=== PATIENT | female | born 1970 | race Caucasian/White ===

== ENCOUNTER 2021-01-13 17:53 | Emergency (ER) | payer MEDICARE, MEDICAID ==
[~2021-01-13] VITALS: Ht 170 cm; Wt 104.0 kg
--- NOTE | 2021-01-13 18:18 | ED Integumentary General ---
General Chief Complaint: Skin/Wound Problems Stated Complaint: L FOOT RASH History of Present Illness Date Seen by Provider: Jan 13, 2021 Time Seen by Provider: 18:07 Initial Comments Left ankle rash. Physical Exam Vital Signs Capillary Refill : Departure Impression Primary Impression: Allergic contact dermatitis Disposition: 01 HOME, SELF-CARE Condition: Stable Departure-Patient Inst. Decision time for Depature: 18:16 Patient Instructions: Contact Dermatitis (DC) Add. Discharge Instructions: Plan: 1. Keep area clean. Apply thin layer of steroid cream twice a day for 7-10 days. 2. May use triple antibiotic cream daily to prevent secondary infection. 3. Avoid contact with brace. May take your home Zyrtec and Benadryl as needed per package for itching/redness. 4. Return for any new, concerning, or worsening symptoms. All discharge instructions reviewed with patient and/or family. Voiced understanding. ROYCE PATTERSON DATA QUALITY CONSULTANT Jan 13, 2021 18:18
[2021-01-13] MEDS ORDERED: TRIAMCINOLONE 0.1% CR (KENALOG) 15 GM TUBE ONE (18:27)
[2021-01-13 18:33] VITALS: BP 134/69
[2021-01-13] MEDS ORDERED: TRIAMCINOLONE 0.1% OINT (KENALOG) 15 GM TUBE TOP ONE (21:00)
[2021-01-14] MEDS ORDERED: CEPH500T PO (19:17)
[2021-01-14] MEDS ORDERED: DEXA4TAB PO (19:17)
== END 2021-01-13 18:33 | disposition home or self-care (01) ==
LOC: ER 17:57
DX: L23.9 Allergic contact dermatitis, unspecified cause (principal)
CPT/HCPCS: 99281

== ENCOUNTER 2021-01-14 18:34 | Emergency (ER) | payer MEDICARE, MEDICAID ==
[~2021-01-14] VITALS: Ht 164 cm; Wt 90.0 kg
[2021-01-14] MEDS ORDERED: CEPHALEXIN 250 MG (KEFLEX) CAP PO SCH (19:15)
[2021-01-14] MEDS ORDERED: DEXA4TAB PO (19:17)
[2021-01-14] MEDS ORDERED: CEPH500T PO (19:17)
--- NOTE | 2021-01-14 19:17 | ED Integumentary General ---
General Chief Complaint: Allergic Reaction Stated Complaint: GUTIÉRREZ ON ANKLE Source: patient Exam Limitations: no limitations History of Present Illness Date Seen by Provider: Jan 14, 2021 Time Seen by Provider: 19:13 Initial Comments To ER with left ankle wound. She was here yesterday for the same. This began after application of a neoprene ankle brace. This began with some redness and today is taken on a more purplish color. She was seen here last night and given some topical triple antibiotic ointment and triamcinolone 0.1% cream. She noticed the development of a few vesicles today circumferentially around the ankle with new development of some erythematous papules on the dorsal aspect of the foot at the location of the wrap. She denies any systemic symptoms. 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 She took her IVIG infusion today and a dexamethasone 4 mg tablet that she only takes once a month. She is also diabetic and is concerned about the development of infection though she does not believe any is present currently Timing/Duration: constant, getting worse Severity: moderate Possible Cause: no cause identified Associated Symptoms: denies symptoms Allergies and Home Medications Allergies Coded Allergies: metaproterenol (Verified Allergy, Unknown, 01/13/21) Uncoded Allergies: CITRIS (Allergy, Unknown, 01/13/21) Patient Home Medication List Home Medication List Reviewed: Yes Review of Systems Review of Systems Constitutional: see HPI EENTM: see HPI Respiratory: no symptoms reported Cardiovascular: no symptoms reported Genitourinary: no symptoms reported Musculoskeletal: no symptoms reported Skin: see HPI Psychiatric/Neurological: No Symptoms Reported Endocrine: No Symptoms Reported Past Krrvutd-Ftfile-Rxclod Hx Patient Social History Tobacco Use?: No Use of E-Cig and/or Vaping dev: No Substance use?: No Alcohol Use?: No Pt feels they are or have been: No Immunizations Up To Date First/Initial COVID19 Vaccinat: 08/24/20 Second COVID19 Vaccination Sukhjinder: 08/24/20 Third COVID19 Vaccination Date: 08/24/20 Physical Exam Vital Signs Capillary Refill : General Appearance: WD/WN, no apparent distress HEENT: PERRL/EOMI, normal ENT inspection Neck: non-tender, full range of motion Respiratory: no respiratory distress, no accessory muscle use Gastrointestinal: normal bowel sounds, non tender Extremities: normal range of motion, non-tender Neurologic/Psychiatric: alert, normal mood/affect, oriented x 3 Skin: normal color, warm/dry Skin Problem Location: lower extremities Skin Problem Character: other (Circumferential erythematous/petechial rash about the left ankle. To the medial aspect of the ankle there are a few vesicles 1 of which has ruptured and is leaking serous fluid. No cellulitis.) Departure Communication (Admissions) I will put her on some cephalexin for infection prophylaxis given her history of CVID and diabetes and 2 more days of dexamethasone at home. She will continue the topical triple antibiotic ointment and topical triamcinolone. Impression Primary Impression: Allergic contact dermatitis Disposition: HOME, SELF-CARE Condition: Stable Departure-Patient Inst. Decision time for Depature: 19:15 Referrals: NO,LOCAL PHYSICIAN (PCP/Family) Primary Care Physician Patient Instructions: Contact Dermatitis (DC) Add. Discharge Instructions: 1. Continue with the triple antibiotic ointment and the topical steroid. You can wrap this with gauze as needed. Elevate this. Take the oral antibiotic and oral steroid as directed. All discharge instructions reviewed with patient and/or family. Voiced understanding. Scripts Cephalexin (Cephalexin) 500 Mg Tablet 500 MG PO TID, #15 TAB 0 Refills Prov: RINKU CARLOS APRN 01/14/21 Dexamethasone (Dexamethasone) 4 Mg Tablet 4 MG PO DAILY, #2 TAB Prov: RINKU CARLOS APRN 01/14/21 RINKU CARLOS APRN Jan 14, 2021 19:17
[2021-01-14 19:45] VITALS: BP 137/74
== END 2021-01-14 19:45 | disposition home or self-care (01) ==
LOC: EDUNIT# 18:34 → ER 18:36
DX: L23.9 Allergic contact dermatitis, unspecified cause (principal); E11.9 Type 2 diabetes mellitus without complications
CPT/HCPCS: 99281

== ENCOUNTER 2021-11-26 08:54 | Emergency (ER) | payer MEDICARE, MEDICAID ==
[~2021-11-26 08:54] MED LIST: CEPH500T PO; DEXA4TAB PO
--- NOTE | 2021-11-26 09:11 | ED Cardiac General ---
History of Present Illness General Chief Complaint: Cardiac/General Problems Stated Complaint: CARDIAC Nursing Triage Note: PT BROUGHT IN BY [facility] FROM HOME WITH COMPLAINT OF CHEST PAIN, AND RACING HEART. STATES LAST NIGHT HER WATCH ALERTED HER THAT SHE WAS IN AFIB. STATES WHENEVER SHE DOES HER AUTOIMMUNE INFUSIONS, IT RAISES HER HEART RATE. TAKES FLECANIDE FOR RATE CONTROL. DESCRIBES CP A SQUEEZING. Source: patient Exam Limitations: no limitations History of Present Illness Date Seen by Provider: Nov 26, 2021 Time Seen by Provider: 09:00 Initial Comments 51-year-old female presents to the emergency department today for chest tightness. She has a history of paroxysmal atrial fibrillation and started to have palpitations, lightheadedness and some difficulty breathing starting at about midnight last night. She figured it was from her atrial fibrillation and she just changed medication, starting flecainide. At about 5 AM she started to have some chest tightness that she has had in the past however it has not gone away which is the reason for her presentation today. She denies any recent fevers or chills, cough, abdominal pain or changes in bowel or bladder habits. She does have history of immune deficiency, takes IVIG she is also diabetic. At present she has chest tightness that is mid central, nonradiating without aggravating or alleviating factors. No associated symptoms currently. Tightness is mild. Allergies and Home Medications Allergies Coded Allergies: [employer] Derivatives (Verified Allergy, Unknown, 11/26/21) egg (Verified Allergy, Unknown, 11/26/21) lactose (Verified Allergy, Unknown, 11/26/21) metaproterenol (Verified Allergy, Unknown, 01/13/21) Patient Home Medication List Home Medication List Reviewed: Yes Cephalexin (Cephalexin) 500 Mg Tablet, 500 MG PO TID Prescribed by: RINKU CARLOS on 01/14/211916 Dexamethasone (Dexamethasone) 4 Mg Tablet, 4 MG PO DAILY Prescribed by: RINKU CARLOS on 01/14/211916 Review of Systems Review of Systems Constitutional: no symptoms reported EENTM: No Symptoms Reported Respiratory: No Symptoms Reported Cardiovascular: Chest Pain Gastrointestinal: No Symptoms Reported Genitourinary: No Symptoms Reported Musculoskeletal: no symptoms reported Skin: no symptoms reported Psychiatric/Neurological: No Symptoms Reported Endocrine: No Symptoms Reported Hematologic/Lymphatic: No Symptoms Reported Past Ggvavam-Fvrkcb-Ifjqpp Hx Patient Social History Tobacco Use?: No Use of E-Cig and/or Vaping dev: No Substance use?: No Alcohol Use?: No Pt feels they are or have been: No Immunizations Up To Date First/Initial COVID19 Vaccinat: 08/24/20 Second COVID19 Vaccination Sukhjinder: 08/24/20 Third COVID19 Vaccination Date: 08/24/20 Family Medical History Reviewed Nursing Family Hx No Pertinent Family Hx Physical Exam Vital Signs Vital Signs - First Documented 11/26/21 08:55 Temp 37.4 Pulse 101 Resp 22 B/P (MAP) 136/70 (92) Pulse Ox 96 O2 Delivery Room Air Capillary Refill : Less Than 3 Seconds Height, Weight, BMI Height: '" Weight: lbs. oz. kg; 33.00 BMI Method: General Appearance: No Apparent Distress, WD/WN HEENT: PERRL/EOMI, Normal ENT Inspection, Pharynx Normal Neck: Normal Inspection, Non Tender, Supple Respiratory: Chest Non Tender, Lungs Clear, Normal Breath Sounds, No Accessory Muscle Use, No Respiratory Distress Cardiovascular: Regular Rate, Rhythm, No Edema, No Gallop, No JVD, No Murmur, Normal Peripheral Pulses Gastrointestinal: Normal Bowel Sounds, No Organomegaly, No Pulsatile Mass, Non Tender, Soft Extremity: Normal Capillary Refill, Normal Inspection, Normal Range of Motion, Non Tender, No Calf Tenderness Neurologic/Psychiatric: Alert, Oriented x3, No Motor/Sensory Deficits Skin: Normal Color, Warm/Dry Lymphatic: No Adenopathy Progress/Results/Core Measures Results/Orders Lab Results Laboratory Tests Test 11/26/21 09:00 Range/Units White Blood Count 8.6 4.3-11.0 10^3/uL Red Blood Count 4.55 3.80-5.11 10^6/uL Hemoglobin 13.1 11.5-16.0 g/dL Hematocrit 41 35-52 % Mean Corpuscular Volume 90 80-99 fL Mean Corpuscular Hemoglobin 29 25-34 pg Mean Corpuscular Hemoglobin Concent 32 32-36 g/dL Red Cell Distribution Width 13.2 10.0-14.5 % Platelet Count 248 130-400 10^3/uL Mean Platelet Volume 9.4 9.0-12.2 fL Immature Granulocyte % (Auto) 0 % Neutrophils (%) (Auto) 70 42-75 % Lymphocytes (%) (Auto) 22 12-44 % Monocytes (%) (Auto) 8 0-12 % Eosinophils (%) (Auto) 0 0-10 % Basophils (%) (Auto) 0 0-10 % Neutrophils # (Auto) 6.0 1.8-7.8 10^3/uL Lymphocytes # (Auto) 1.9 1.0-4.0 10^3/uL Monocytes # (Auto) 0.7 0.0-1.0 10^3/uL Eosinophils # (Auto) 0.0 0.0-0.3 10^3/uL Basophils # (Auto) 0.0 0.0-0.1 10^3/uL Immature Granulocyte # (Auto) 0.0 0.0-0.1 10^3/uL Sodium Level 141 135-145 MMOL/L Potassium Level 3.7 3.6-5.0 MMOL/L Chloride Level 110 H 98-107 MMOL/L Carbon Dioxide Level 20 L 21-32 MMOL/L Anion Gap 11 5-14 MMOL/L Blood Urea Nitrogen 16 7-18 MG/DL Creatinine 0.88 0.60-1.30 MG/DL Estimat Glomerular Filtration Rate 80 BUN/Creatinine Ratio 18 Glucose Level 151 H 70-105 MG/DL Calcium Level 9.1 8.5-10.1 MG/DL Corrected Calcium 9.3 8.5-10.1 MG/DL Magnesium Level 1.9 1.6-2.4 MG/DL Total Bilirubin 0.3 0.1-1.0 MG/DL Aspartate Amino Transf (AST/SGOT) 21 5-34 U/L Alanine Aminotransferase (ALT/SGPT) 28 0-55 U/L Alkaline Phosphatase 75 40-136 U/L Troponin I < 0.028 <0.028 NG/ML Total Protein 7.6 6.4-8.2 GM/DL Albumin 3.8 3.2-4.5 GM/DL My Orders Orders - SD GARCIA DO Ekg Tracing (11/26/21 09:00) Cbc With Automated Diff (11/26/21 09:06) Comprehensive Metabolic Panel (11/26/21 09:06) Troponin I [place] (11/26/21 09:06) Chest 1 View, Ap/Pa Only (11/26/21 09:06) Magnesium (11/26/21 09:06) Aspirin Chewable Tablet (Baby Aspirin Ch (11/26/21 09:15) Medications Given in ED Current Medications Medications Dose Ordered Sig/Ish Route Start Time Stop Time Status Last Admin Dose Admin Aspirin 324 mg ONCE ONCE PO 11/26/21 09:15 11/26/21 09:16 DC 11/26/21 09:18 324 MG Vital Signs/I&O 11/26/21 11/26/21 08:55 10:00 Temp 37.4 Pulse 101 87 Resp 22 19 B/P (MAP) 136/70 (92) 119/62 Pulse Ox 96 94 O2 Delivery Room Air Room Air Blood Pressure Mean: 92 Comment Sinus rhythm with a rate of 93 bpm. Normal intervals. Normal axis. No ST or T wave abnormalities. No ectopy. Departure Communication (Admissions) The patient is hemodynamically stable and in sinus rhythm on arrival. Likely that she did go into paroxysmal atrial fibrillation overnight however again she is in a sinus rhythm at present. Concern for electrolyte abnormality, anemia, ACS. Medication changes and process of her atrial fibrillation. Labs are reassuring with normal electrolytes, no evidence for anemia. No evidence for infection. Troponin is negative, unlikely to be ACS at this time. Likely related to changes in medication recently, started on flecainide. Since she is in a sinus rhythm at present I will defer further medication management to her primary residential subcontractor. She states understanding and will contact them on Sunday. Discharged in stable condition after questions were sought and answered. The patient is comfortable and agreeable to the current plan of care. Impression Primary Impression: Chest discomfort Disposition: HOME, SELF-CARE Condition: Stable Departure-Patient Inst. Referrals: NO,LOCAL PHYSICIAN (PCP/Family) Primary Care Physician Patient Instructions: Chest Pain (DC) Add. Discharge Instructions: Call your residential subcontractor in [place] to discuss recommendation including treatment. Return to the emergency department for any severe concerns. All discharge instructions reviewed with patient and/or family. Voiced understanding. SD GARCIA DO Nov 26, 2021 09:11
[2021-11-26 09:12] LABS: BASOPHILS % (AUTO) 0 % (0-10); EOSINOPHILS % (AUTO) 0 % (0-10); HEMATOCRIT 41 % (35-52); HEMOGLOBIN 13.1 g/dL (11.5-16.0); LYMPHOCYTES # (AUTO) 1.9 10^3/uL (1.0-4.0); LYMPHOCYTES % (AUTO) 22 % (12-44); MEAN CORPUSCULAR HEMOGLOBIN 29 pg (25-34); MEAN CORPUSCULAR HGB CONC 32 g/dL (32-36); MEAN CORPUSCULAR VOLUME 90 fL (80-99); MEAN PLATELET VOLUME 9.4 fL (9.0-12.2); MONOCYTES # (AUTO) 0.7 10^3/uL (0.0-1.0); MONOCYTES % (AUTO) 8 % (0-12); NEUTROPHILS % (AUTO) 70 % (42-75); PLATELET COUNT 248 10^3/uL (130-400); WHITE BLOOD COUNT 8.6 10^3/uL (4.3-11.0)
[2021-11-26 09:14] LABS: ALBUMIN 3.8 GM/DL (3.2-4.5); CHLORIDE 110 MMOL/L (98-107); POTASSIUM 3.7 MMOL/L (3.6-5.0); SODIUM 141 MMOL/L (135-145)
[2021-11-26 09:15] LABS: CALCIUM 9.1 MG/DL (8.5-10.1)
[2021-11-26] MEDS ORDERED: ASPIRIN 81 MG CHEW (CHILDREN'S ASA) PO ONE (09:15)
[2021-11-26 09:17] LABS: GLUCOSE 151 MG/DL (70-105); TOTAL PROTEIN 7.6 GM/DL (6.4-8.2)
[2021-11-26 09:18] LABS: BILIRUBIN,TOTAL 0.3 MG/DL (0.1-1.0); CARBON DIOXIDE 20 MMOL/L (21-32)
[2021-11-26 09:20] LABS: ALKALINE PHOSPHATASE 75 U/L (40-136); CREATININE SERUM 0.88 MG/DL (0.60-1.30); GFR ESTIMATED 80
[2021-11-26 09:21] LABS: BUN/CREATININE RATIO 18
[2021-11-26 09:23] LABS: ALANINE AMINOTRANSFERASE 28 U/L (0-55); MAGNESIUM 1.9 MG/DL (1.6-2.4)
--- NOTE | 2021-11-26 09:39 | Diagnostic Imaging Report ---
INDICATION: Chest pain and tachycardia. FINDINGS: Lungs are clear. No failure, effusion or pneumothorax. IMPRESSION: Negative Dictated by: Dictated on workstation # [id number]
[2021-11-26 10:00] VITALS: BP 119/62
== END 2021-11-26 10:00 | disposition home or self-care (01) ==
LOC: EDUNIT# 08:54 → ER 08:56
DX: R07.89 Other chest pain (principal); R00.8 Other abnormalities of heart beat; Z86.79 Personal history of other diseases of the circulatory system; Z86.2 Personal history of diseases of the blood and blood-forming organs and certain disorders involving the immune mechanism; Z79.899 Other long term (current) drug therapy
CPT/HCPCS: 36415; 71045; 80053; 83735; 84484; 85025; 93005